=== PATIENT | male | born 1980 | race Caucasian/White ===

== ENCOUNTER 2018-08-17 03:14 | Emergency (ER) | payer SELFPAY ==
[~2018-08-17] VITALS: Ht 170.2 cm; Wt 88.5 kg
[2018-08-17 03:23] VITALS: Ht 170.2 cm; Wt 88.5 kg
--- NOTE | 2018-08-17 03:46 | ERD ---
ER Documentation Chief Complaint Chief Complaint hives after eating chicken wings HPI 37-year-old male, previously healthy, presents the emergency department, complaining of 1 day with persistent erythematous nonpruritic rash that is started after eating chicken yesterday. The patient denies history of previous episodes. The patient denies shortness of breath, no difficulty swallowing. ROS All systems reviewed and are negative except as per history of present illness. Allergies Allergies: Coded Allergies: No Known Allergy (Unverified , 08/17/18) Physical Exam Vitals Vital Signs Date Temp Pulse Resp B/P (MAP) Pulse Ox O2 O2 Flow FiO2 Time Delivery Rate 08/17/18 99.0 65 16 135/76 97 03:23 (95) Physical Exam Const: No acute distress Head: Atraumatic Eyes: Normal Conjunctiva ENT: Normal External Ears, Nose and Mouth. Neck: Full range of motion. No meningismus. Resp: Clear to auscultation bilaterally Cardio: Regular rate and rhythm, no murmurs Abd: Soft, non tender, non distended. Normal bowel sounds Skin: No petechiae or rashes Back: No midline or flank tenderness Ext: Disseminated urticarial rash predominantly on the face and upper extremities. Neur: Awake and alert Psych: Normal Mood and Affect Results 24 hrs Current Medications Medications Dose Sig/Hiwot Start Time Status Last (Trade) Ordered Route PRN Stop Time Admin Dose Reason Admin 125 mg ONCE ONCE 08/17/18 08/17/18 Methylprednis IM 04:00 08/17/18 03:59 olone Sodium 04:01 Succinate (Solu-Medrol) 50 mg ONCE ONCE 08/17/18 08/17/18 Diphenhydrami IM 04:00 08/17/18 03:59 ne HCl 04:01 (Benadryl) Procedures/MDM Differential diagnosis include but not limited to: Viral exanthema, acute allergic reaction, autoimmune dermatitis, medication side effect, low suspicion for angioedema, anaphylactic shock, Fan-Juan syndrome. Physical examination and clinical presentation consistent most likely with acute allergic urticaria During the ED course the patient remained hemodynamically stable stable, no new complaints. The patient received treatment with IM steroids, IM Benadryl presenting overall improvement of the symptoms. Results and clinical impression discussed with the parent who agrees with management. The patient is stable to be treated outpatient and will be di scharged home with a Rx for Benadryl, some side effects of prescribed medications (headache, rash, nausea, vomiting, diarrhea, drowsiness, interactions with other medications) were reviewed. The patient was instructed to follow up with the primary care provider in the next 48h. If symptoms persist, worsen or new symptoms develop, then patient should return to the ED immediately. Instructions explained and given directly by me with acknowledgment and demonstrated understanding. Disclaimer: Inadvertent spelling and grammatical errors are likely due to EHR/dictation software use and do not reflect on the overall quality of patient care. Also, please note that the electronic time recorded on this note does not necessarily reflect the actual time of the patient encounter. Departure Diagnosis: Primary Impression: Allergic urticaria Condition: Stable Patient Instructions: Tory Additional Instructions: Muchas steffen por [facility] para prahter servicio. Esperamos que en prather visita a la vince de emergencia prather problema medico haya sido solucionado y que se sienta mucho mejor. Para estar seguros que prather mejoria sigue en proceso, le pedimos el favor de hacer jose candy de seguimiento medico con prather doctor primario en los proximos 2-4 bush. Lleve con usted estos documentos y las medicinas recetadas. Si crissy sintomas empeoran, NO SE ESPERE, por favor regrese a vince de emergencia INMEDIATAMENTE. En ebony que usted no tenga un mdico de atencin primaria: Llame al mdico o clnica comunitaria de referencia que aparece abajo julita las horas de consultorio para hacer jose candy para que le vean. CLINICAS: [facility] [phone] [facility] [phone] [facility] [phone] [place] [id number] [phone] [place] [phone] [facility]. [phone] BRODY DOVE MD Aug 17, 2018 03:46
[2018-08-17] MEDS ORDERED: METHYLPREDNISOLONE 125 MG INJ IM ONE (04:00)
[2018-08-17] MEDS ORDERED: DIPHENHYDRAMINE 50 MG INJ IM ONE (04:00)
[2018-08-17] MEDS ORDERED: BEN50 PO (04:06)
[2018-08-17] MEDS ORDERED: PRED20TA PO (04:06)
[2018-08-17 04:20] VITALS: BP 141/76; PULSE 58; RESP 18
== END 2018-08-17 04:20 | disposition home or self-care (01) ==
LOC: FTE 03:14
DX: L50.0 Allergic urticaria (principal)
CPT/HCPCS: 96372; 99284; J1200; J2930